=== PATIENT | male | born 1990 ===

== ENCOUNTER → 2021-07-18 | Emergency (ER) | payer SELFPAY ==
[~2021-07-18] VITALS: Ht 165.1 cm; Wt 86.2 kg
[2021-07-18 16:18] VITALS: BP 132/91
== END | disposition left against medical advice (07) ==
LOC: ER 16:06
DX: M25.552 Pain in left hip (principal); M25.511 Pain in right shoulder; M54.9 Dorsalgia, unspecified; V59.40XA Driver of pick-up truck or van injured in collision with unspecified motor vehicles in traffic accident, initial encounter; Y93.89 Activity, other specified; Y92.410 Unspecified street and highway as the place of occurrence of the external cause; Y99.8 Other external cause status